=== PATIENT | male | born 1990 | race Caucasian/White ===

== ENCOUNTER 2023-01-19 07:11 | Day surgery (SDC) | payer OTHER ==
[2023-01-19] VITALS (220 sets, daily range): BP systolic 73–237; BP diastolic 53–216
[~2023-01-19] VITALS: Ht 177.8 cm; Wt 96.6 kg
[2023-01-19] MEDS ORDERED: LUNESTA3 MG PO (08:09)
[2023-01-19 08:10] LABS: BASO% 0.5 % (0-3); EOS% 16.7 % (0-8); HEMATOCRIT 42.2 % (39.0-50.0); HEMOGLOBIN 13.7 g/dl (14.0-18.0); IMMATURE GRANULOCYTES 0.1 % (0.0-5.0); MEAN CELL VOLUME 90.6 fL CALC (80.0-100.0); MEAN CORPUSCULAR HGB 29.4 pG CALC (26.0-32.0); MEAN CORPUSCULAR HGB CONC 32.5 g/dL CAL (32.0-36.0); MONO% 5.5 % (2-13); NEUT# 2.99 thou/uL (1.82-7.42); NEUT% 40.2 % (42-76); RED BLOOD COUNT 4.66 mill/uL (4.70-6.10); RED CELL DISTRI WIDTH 12.3 % (11.5-15.5)
[2023-01-19 08:24] LABS: ALBUMIN 3.9 g/dL (3.2-5.0); ALKALINE PHOSPHATASE 79 u/l (38-126); ANION GAP 9 (6-22 (CALC)); BILIRUBIN, TOTAL 0.2 mg/dL (0.2-1.3); BUN 15 mg/dL (9-20); BUN/CREATININE RATIO 16 (12-20 (CALC)); CARBON DIOXIDE 29 mmol/l (22-30); CHLORIDE 105 mmol/l (95-108); CREATININE 0.9 mg/dL (0.7-1.3); GFR FOR AFR.AMER. > 60 ML/MIN (>=60 (CALC)); GFR OTHER RACES > 60 ML/MIN (>=60 (CALC)); SGOT/AST 29 u/l (17-59); SODIUM 140 mmol/l (137-146); TOTAL PROTEIN 6.8 g/dL (6.3-8.2)
[2023-01-19] MEDS ORDERED: NALTREXONE50 MG PO (15:10)
[2023-01-19] MEDS ORDERED: KLONOPIN2 MG PO (15:11)
[2023-01-19] MEDS ORDERED: CLONIDINE0.1 MG PO (15:11)
[2023-01-20 04:38] VITALS: BP 126/74
[2023-01-20 05:17] LABS: BASO% 0.1 % (0-3); HEMOGLOBIN 13.5 g/dl (14.0-18.0); IMMATURE GRANULOCYTES 0.3 % (0.0-5.0); LYMPH% 7.4 % (15-41); MEAN CELL VOLUME 87.1 fL CALC (80.0-100.0); MEAN CORPUSCULAR HGB 29.4 pG CALC (26.0-32.0); MEAN CORPUSCULAR HGB CONC 33.8 g/dL CAL (32.0-36.0); MONO% 0.9 % (2-13); NEUT# 9.62 thou/uL (1.82-7.42); NEUT% 91.3 % (42-76); RED BLOOD COUNT 4.59 mill/uL (4.70-6.10)
[2023-01-20 05:27] LABS: ALKALINE PHOSPHATASE 65 u/l (38-126); ANION GAP 11 (6-22 (CALC)); BUN 12 mg/dL (9-20); BUN/CREATININE RATIO 16 (12-20 (CALC)); CARBON DIOXIDE 24 mmol/l (22-30); CHLORIDE 107 mmol/l (95-108); CREATININE 0.8 mg/dL (0.7-1.3); GFR FOR AFR.AMER. > 60 ML/MIN (>=60 (CALC)); GFR OTHER RACES > 60 ML/MIN (>=60 (CALC)); POTASSIUM 3.8 mmol/l (3.5-5.1); SGOT/AST 29 u/l (17-59); SODIUM 138 mmol/l (137-146); TOTAL PROTEIN 6.6 g/dL (6.3-8.2)
[2023-01-20 06:29] LABS: BILIRUBIN, TOTAL 0.6 mg/dL (0.2-1.3)
[2023-01-20 07:30] VITALS: BP 110/61
== END 2023-01-20 17:20 | disposition home or self-care (01) | DRG 897 ==
LOC: MS2 07:11 → ANR 07:11 → MS2 19:20 → ANR 01-20 17:20
PROVIDERS: ATTEND Anesthesiology
DX: F11.20 Opioid dependence, uncomplicated (principal)
CPT/HCPCS: J0131; J2354; J3475